=== PATIENT | female | born 1995 | race African-American/Black ===

== ENCOUNTER 2020-07-03 15:52 | Outpatient (REF) | payer OTHER, SELFPAY | END 2020-07-03 15:53 | disposition home or self-care (01) | LOC: HO.LAB 15:52 | PROVIDERS: Visit Provider Internal Medicine | DX: Z20.822 Contact with and (suspected) exposure to COVID-19 (principal) | CPT/HCPCS: 36415; C9803; U0003; U0005 ==

== ENCOUNTER 2020-08-16 12:09 | Outpatient (REF) | payer OTHER, SELFPAY ==
[2020-08-17 07:21] LABS: SARS COV2 PCR INHOUSE NEGATIVE (Negative)
== END 2020-08-16 12:10 | disposition home or self-care (01) ==
LOC: HO.LAB 12:09
PROVIDERS: Visit Provider Internal Medicine
DX: Z20.822 Contact with and (suspected) exposure to COVID-19 (principal)
CPT/HCPCS: C9803; U0003